=== PATIENT | female | born 1970 | race Caucasian/White ===

== ENCOUNTER 2019-02-28 16:05 | Inpatient (IN) | payer OTHER ==
[2019-02-28 18:39] VITALS: BMI 22.5
--- NOTE | 2019-02-28 19:46 | HP ---
CIWA Score Nausea/Vomitin-No Nausea/No Vomiting Muscle Tremors: None Anxiety: 4-Mod. Anxious/Guarded Agitation: 4-Moderately Restless Paroxysmal Sweats: 3 (Increased facial moisture) Orientation: 0-Oriented Tacttile Disturbances: 1-Very Mild Itch/Numbness Auditory Disturbances: 0-None Visual Disturbances: 0-None Headache: 2-Mild CIWA-Ar Total Score: 14 - Admission Criteria OASAS Guidelines: Admission for Medically Managed Detox: Requires at least one of the followin. CIWA greater than 12 2. Seizures within the past 24 hours 3. Delirium tremens within the past 24 hours 4. Hallucinations within the past 24 hours 5. Acute intervention needed for co occurring medical disorder 6. Acute intervention needed for co occurring psychiatric disorder 7. Severe withdrawal that cannot be handled at a lower level of care (continued vomiting, continued diarrhea, abnormal vital signs) requiring intravenous medication and/or fluids 8. Patient presents the following: CIWA greater than 12 Admission Criteria Met: Admission criteria met Admission ROS S - HPI Chief Complaint: I need to stop using Xanax. Allergies/Adverse Reactions: Allergies Allergy/AdvReac Type Severity Reaction Status Date / Time paroxetine [From Paxil] Allergy Intermediate Rash Verified 02/28/19 18:30 penicillin G AdvReac Swelling Verified 02/28/19 18:30 Sulfa (Sulfonamide AdvReac Swelling Verified 02/28/19 18:30 Antibiotics) History of Present Illness: 48 yo presents w/ Xanax withdrawal seeking detox. Referred by the [facility]". Hx seizure r/t Xanax withdrawal. Denies blackouts/overdoses. JOSUE: 0.0 Utox: + JOSE/OXY/MTD/BZO HCG: Neg Hx heroin use disorder and is on [facility] MMT for over 1 year ). LDM 02/28/19 (today) w/ 50 mg Methadone. Missed several doses and states is currently on a build-up. Was on 115 mg. Has a Narcan kit at home. Benzo use began at age 26 and legally prescribed. Current us is 5-6 mg/day. [facility] has been getting un-prescribed Xanax November 2018. Cocaine - denies use. Oxycodone - states took today for back pain. Nicotine use began at age 13. Currently smokes 6 cig/day (Down from 1.5 PPD) Denies alcohol use. PMHx: Hyperthyroid, chronic back pain, MHHx: Anxiety. PTSD. Depressions. Stopped Zoloft 2 months ago. No recent Psych visit. Denies thoughts of harming self or others. SHx: Homeless. Unemployed. Denies legal issues. Patient Name: Anitra Randhawa Date: 1970 Address: [address] [place] [address] Sex: Female Rx Written Rx Dispensed Drug Quantity Days Supply Prescriber Name 10/17/2018 10/24/2018 alprazolam 2 mg tablet 60 30 Erika Salazar [employer] 09/19/2018 09/25/2018 alprazolam 2 mg tablet 60 30 Erika Salazar [employer] 08/22/2018 08/28/2018 alprazolam 2 mg tablet 60 30 Erika Salazar [employer] 07/22/2018 07/31/2018 alprazolam 2 mg tablet 60 30 Erika Salazar [employer] Patient Name: Anitra Randhawa Date: 1970 Address: [address] [place] [address] Sex: Female Rx Written Rx Dispensed Drug Quantity Days Supply Prescriber Name 06/24/2018 07/02/2018 alprazolam 2 mg tablet 60 30 Erika Salazar [employer] 05/27/2018 06/04/2018 alprazolam 2 mg tablet 60 30 Erika Salazar [employer] Patient Name: Anitra Randhawa Date: 1970 Address: [address] [place] [address] Sex: Female Rx Written Rx Dispensed Drug Quantity Days Supply Prescriber Name 05/28/2018 05/28/2018 alprazolam 2 mg tablet 60 30 Erika Salazar [employer] Search Terms: Anitra Menjivar, 1970 Search Date: 02/28/2019 07:46:04 PM States Searched: [place], [place], [place], [place], [place], [place], [place] The Drug Utilization Report below displays the controlled substance prescriptions, if any, that were dispensed in the indicated state(s). The information displayed on this report is compiled from requests submitted to other states' PMPs, and accurately reflects the information as returned by them. Blank leblanc indicate data not provided by other state. This report was requested by: Marcie Rodriguez | Reference #: [id number] There are no results for the search terms that you entered. Exam Limitations: No Limitations - Ebola screening Have you traveled outside of the country in the last 21 days: No Have you had contact with anyone from an Ebola affected area: No Have you been sick,other than usual withdrawal symptoms: No Do you have a fever: No - Review of Systems Constitutional: Chills, Weight Stable EENT: reports: Blurred Vision, Dental Problems (Missing teeth) Respiratory: reports: No Symptoms reported Cardiac: reports: No Symptoms Reported GI: reports: Constipated (Last BM 3 days ago), Indigestion (Heart burn - take OTC Nexium) : reports: No Symptoms Reported Musculoskeletal: reports: Back Pain (Chronic intermittent achy/sharp back pain. Triggered by sitting and standing too long, as well as certain movements. Pain in back now "7". Improves relaxation, meds (neurontin, motrin, flexeril).), Joint Pain (Hips, (L) knee - achy) Integumentary: reports: No Symptoms Reported Neuro: reports: Headache (Mild headache - temporal area) Endocrine: reports: Increased Thirst Hematology: reports: No Symptoms Reported Psychiatric: reports: Mood/Affect Appropiate, Orientated x3, Anxious, Depressed ( Denies thoughts of harming self or others.) Patient History - PPD History Previous Implant?: Yes Documented Results: Negative w/o proof Implanted On Prior R Admission?: No PPD to be Administered?: Yes - Reproductive History Patient is a Female of Child Bearing Age (11 -55 yrs old): Yes Last Menstrual Period: 01/29/19 Patient : No - Smoking Cessation Smoking history: Current every day smoker Have you smoked in the past 12 months: Yes Aproximately how many cigarettes per day: 6 Hx Chewing Tobacco Use: No Initiated information on smoking cessation: Yes 'Breaking Loose' booklet given: 02/28/19 - Substance & Tx. History Hx Alcohol Use: No Hx Substance Use: Yes Substance Use Type: Heroin, Tranquilizers (Benzo) Hx Substance Use Treatment: Yes (detox, Currrently on MMTP) - Substances abused Alprazolam (Xanax) Substance route: Oral Frequency: Daily Amount used: 5 to 6 mg Age of first use: 26 Date of last use: 02/27/19 Admission Physical Exam [facility] - Vital Signs Vital Signs: Vital Signs - 24 hr 02/28/19 02/28/19 18:28 19:01 Temperature 98.2 F 98.2 F Pulse Rate 69 69 Respiratory 16 16 Rate Blood Pressure 99/62 99/62 - Physical General Appearance: Yes: Nourished, Mild Distress, Sweating (Increased facial moisture), Anxious HEENTM: Yes: EOMI (Jerking movement of eyes upon lateral gaze), Hearing grossly Normal, Normocephalic, Normal Voice, ZEENAT, Pharynx Normal Respiratory: Yes: Lungs Clear (Pulse ox = 99 %), Normal Breath Sounds, No Respiratory Distress Neck: Yes: No masses,lesions,Nodules, Supple Breast: Yes: Breast Exam Deferred Cardiology: Yes: Regular Rhythm, Regular Rate Abdominal: Yes: Non Tender, Flat, Soft, Increased Bowel Sounds Genitourinary: Yes: Within Normal Limits Back: Yes: Within Normal Limits Musculoskeletal: Yes: full range of Motion, Gait Steady Extremities: Yes: Normal Capillary Refill, Tremors 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: 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: 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 NML intact (Jerking movement of eyes upon lateral gaze), Fully Oriented, Alert, Motor Strength 5/5, Normal Response Integumentary: Yes: Normal Color, Cyanotic, Diaphoresis (Increased facial moisture) Lymphatic: Yes: Within Normal Limits - Diagnostic (1) Sedative, hypnotic or anxiolytic dependence with withdrawal, uncomplicated Current Visit: Yes Status: Acute (2) Nicotine dependence, unspecified, uncomplicated Current Visit: Yes Status: Chronic Qualifiers: Nicotine product type: cigarettes Qualified Code(s): F17.210 - Nicotine dependence, cigarettes, uncomplicated (3) Unspecified nystagmus Current Visit: Yes Status: Chronic (4) History of thyroid disorder Current Visit: No Status: Suspected (5) Opioid dependence on agonist therapy Current Visit: Yes Status: Chronic Comment: on Methadone Maintenance (6) Constipation Current Visit: Yes Status: Chronic Qualifiers: Constipation type: unspecified constipation type Qualified Code(s): K59.00 - Constipation, unspecified Cleared for Admission [facility] - Detox or Rehab [facility] Level of Care: Medically Managed Detox Regimen/Protocol: Valium (ATIVAN ) Claeared for Rehab Admission: No Breathalyzer - Breathalyzer Breathalyzer: 0 POC Urine test - Result Urine Test Results: Negative - NO line present Urine Drug Screen - Test Device Lot number: [id number] Expiration date: 11/13/20 - Control Is test valid?: Yes - Results Drug screen NEGATIVE: No Urine drug screen results: JOSE-Cocaine, OXY-Oxycodone, MTD-Methadone, BZO- Benzodiazepines Inpatient Rehab Admission - Rehab Decision to Admit Inpatient rehab admission?: No
[2019-02-28] MEDS ORDERED: NICOTINE POLACRILEX 2 MG GUM BUC PRN (20:39)
[2019-02-28] MEDS ORDERED: MAGNESIUM HYDROX 2400MG/30ML ORAL SUSPENSION 30 ML CUP PO PRN (20:39)
[2019-02-28] MEDS ORDERED: MAG HYDROX/AL HYDROX/SIMETH 30 ML UNIT-DOSE CUP PO PRN (20:39)
[2019-02-28] MEDS ORDERED: MAGNESIUM CITRATE 300 ML BOTTLE PO PRN (20:39)
[2019-02-28] MEDS ORDERED: BISMUTH SUBSALICYLATE 524 MG/30 ML UD PO PRN (20:39)
[2019-02-28] MEDS ORDERED: ACETAMINOPHEN 325 MG TABLET (FP) PO PRN ×2 (20:39)
[2019-02-28] MEDS ORDERED: MENTHOL/PHENOL 1 EACH UD MM PRN (20:39)
[2019-02-28] MEDS ORDERED: PROCHLORPERAZINE MALEATE 5 MG TABLET PO PRN (20:43)
[2019-02-28] MEDS: CYCLOBENZAPRINE HCL 5 MG TABLET PO PRN (22:41)
[2019-02-28] MEDS: THIAMINE HCL 100 MG TABLET (FP) PO SCH (22:41)
[2019-02-28] MEDS: LORazepam 1 MG TABLET PO SCH (22:42)
[2019-02-28] MEDS ORDERED: LORazepam 2 MG TABLET PO SCH (23:00)
[2019-03-01] MEDS: LORazepam 1 MG TABLET PO SCH ×4 (06:15→22:31)
[2019-03-01] MEDS: DOCUSATE SODIUM 100 MG CAPSULE (FP) PO SCH ×3 (06:15→22:31)
[2019-03-01] MEDS ORDERED: METHADONE HCL 40 MG DISPERSABLE TABLET PO SCH (10:00)
[2019-03-01] MEDS ORDERED: METHADONE 40 MG, METHADONE 10 MG PO ONE (10:15)
[2019-03-01] MEDS ORDERED: METHADONE HCL 40 MG DISPERSABLE TABLET ONE (10:17)
[2019-03-01] MEDS ORDERED: METHADONE HCL 10 MG TABLET ONE (10:17)
[2019-03-01] MEDS: NICOTINE 7 MG/24 HOURS TOPICAL PATCH TD SCH (10:18)
[2019-03-01] MEDS: PRENATAL VITAMINS W/ FOLIC ACID TABLET (FP) PO SCH (10:18)
[2019-03-01 10:25] LABS: HEMATOCRIT 32.1 % (32.4-45.2); MCH 30.9 pg (25.7-33.7); MCHC 34.2 g/dl (32.0-36.0); MEAN CELL VOLUME 90.3 fl (80-96); MEAN PLT VOLUME 9.6 fl (7.5-11.1); PLATELET COUNT 225 K/MM3 (134-434); RBC 3.55 M/mm3 (3.60-5.2); WHITE BLOOD COUNT 6.1 K/mm3 (4.0-10.0)
[2019-03-01 10:41] LABS: ALBUMIN 3.4 g/dl (3.4-5.0); BILIRUBIN,TOTAL 0.2 mg/dL (0.2-1); BLOOD UREA NITROGEN 13.3 mg/dL (7-18); CALCIUM 8.6 mg/dL (8.5-10.1); CREATININE 0.9 mg/dL (0.55-1.3); POTASSIUM 3.3 mmol/L (3.5-5.1); TOT PROT 6.3 g/dl (6.4-8.2)
--- NOTE | 2019-03-01 12:37 | PN ---
S CIWA - CIWA Score Nausea/Vomitin-No Nausea/No Vomiting Muscle Tremors: None Anxiety: 3 Agitation: 0-Normal Activity Paroxysmal Sweats: 3 Orientation: 0-Oriented Tacttile Disturbances: 0-None Auditory Disturbances: 0-None Visual Disturbances: 0-None Headache: 2-Mild CIWA-Ar Total Score: 8 BHS Progress Note (SOAP) Subjective: c/o sweats, headache, interrupted sleep, and anxiety. Objective: 03/01/19 12:37 Vital Signs 03/01/19 03/01/19 06:40 09:14 Temperature 98.9 F 98.9 F Pulse Rate 77 78 Respiratory 18 18 Rate Blood Pressure 101/56 L 99/62 Laboratory Last Values WBC 6.1 K/mm3 (4.0-10.0) 03/01/19 07:55 RBC 3.55 M/mm3 (3.60-5.2) L 03/01/19 07:55 Hgb 11.0 GM/dL (10.7-15.3) 03/01/19 07:55 Hct 32.1 % (32.4-45.2) L 03/01/19 07:55 MCV 90.3 fl (80-96) 03/01/19 07:55 MCH 30.9 pg (25.7-33.7) 03/01/19 07:55 MCHC 34.2 g/dl (32.0-36.0) 03/01/19 07:55 RDW 14.0 % (11.6-15.6) 03/01/19 07:55 Plt Count 225 K/MM3 (134-434) 03/01/19 07:55 MPV 9.6 fl (7.5-11.1) 03/01/19 07:55 Sodium 140 mmol/L (136-145) 03/01/19 07:55 Potassium 3.3 mmol/L (3.5-5.1) L 03/01/19 07:55 Chloride 113 mmol/L (98-107) H 03/01/19 07:55 Carbon Dioxide 20 mmol/L (21-32) L 03/01/19 07:55 Anion Gap 7 MMOL/L (8-16) L 03/01/19 07:55 BUN 13.3 mg/dL (7-18) 03/01/19 07:55 Creatinine 0.9 mg/dL (0.55-1.3) 03/01/19 07:55 Est GFR (CKD-EPI)AfAm 87.63 03/01/19 07:55 Est GFR (CKD-EPI)NonAf 75.61 03/01/19 07:55 Random Glucose 141 mg/dL (74-106) H 03/01/19 07:55 Calcium 8.6 mg/dL (8.5-10.1) 03/01/19 07:55 Total Bilirubin 0.2 mg/dL (0.2-1) 03/01/19 07:55 AST 12 U/L (15-37) L 03/01/19 07:55 ALT 16 U/L (13-61) 03/01/19 07:55 Alkaline Phosphatase 68 U/L (45-117) 03/01/19 07:55 Total Protein 6.3 g/dl (6.4-8.2) L 03/01/19 07:55 Albumin 3.4 g/dl (3.4-5.0) 03/01/19 07:55 TSH 0.01 uIU/ml (0.358-3.74) L 03/01/19 07:55 RPR Titer Nonreactive (NONREACTIVE) 03/01/19 07:55 Labs noted with k+ level of 3.3 Assessment: 03/01/19 12:38 AOX3, in no acute respiratory distress. Full ROM, ambulating in the unit. Withdrawal symptoms. hypokalemia Plan: continue detox potassium chloride 40meq po [id number] 4hrs apart. Repeat K+ in AM.
[2019-03-01] MEDS: LORazepam 1 MG TABLET PO PRN (13:54)
[2019-03-01] MEDS: POTASSIUM CHLORIDE TABS 20 MEQ TABLET.ER (FP) PO SCH ×2 (13:54→17:18)
[2019-03-01] MEDS ORDERED: guaiFENesin 200 MG/10 ML 10 ML UNIT-DOSE CUPS PO PRN (14:58)
[2019-03-01] MEDS: MELATONIN 5 MG TABLETS PO PRN (22:31)
[2019-03-01] MEDS: THIAMINE HCL 100 MG TABLET (FP) PO SCH (22:31)
[2019-03-02] MEDS ORDERED: METHADONE HCL 10 MG TABLET ONE (04:26)
[2019-03-02] MEDS ORDERED: METHADONE HCL 40 MG DISPERSABLE TABLET ONE (04:27)
[2019-03-02] MEDS: LORazepam 1 MG TABLET PO SCH ×4 (05:57→22:36)
[2019-03-02] MEDS: DOCUSATE SODIUM 100 MG CAPSULE (FP) PO SCH ×3 (05:59→22:36)
[2019-03-02] MEDS ORDERED: METHADONE 40 MG, METHADONE 10 MG PO SCH (06:00)
[2019-03-02] MEDS: NICOTINE 7 MG/24 HOURS TOPICAL PATCH TD SCH (10:15)
[2019-03-02] MEDS: PRENATAL VITAMINS W/ FOLIC ACID TABLET (FP) PO SCH (10:15)
--- NOTE | 2019-03-02 10:18 | PN ---
S CIWA - CIWA Score Nausea/Vomitin-Mild Nausea/No Vomiting Muscle Tremors: 3 Anxiety: 3 Agitation: 0-Normal Activity Paroxysmal Sweats: 2 Orientation: 1-Uncertain about Date (date of week) Tacttile Disturbances: 0-None Auditory Disturbances: 0-None Visual Disturbances: 0-None Headache: 2-Mild CIWA-Ar Total Score: 12 S Progress Note (SOAP) Subjective: 48 years old female admitted on for benzo withdrawal sx management treated with ativan detox regimen patient tolerated well in methadone program 1 1/2 years taking 115 mg po daily last dose "weeks" ago currently taking 50 mg po daily continue observe toleration Objective: 03/02/19 10:17 Vital Signs Temperature 98.3 F 03/02/19 09:54 Pulse Rate 71 03/02/19 09:54 Respiratory Rate 18 03/02/19 09:54 Blood Pressure 97/61 03/02/19 09:54 O2 Sat by Pulse Oximetry (%) Laboratory Last Values WBC 6.1 K/mm3 (4.0-10.0) 03/01/19 07:55 RBC 3.55 M/mm3 (3.60-5.2) L 03/01/19 07:55 Hgb 11.0 GM/dL (10.7-15.3) 03/01/19 07:55 Hct 32.1 % (32.4-45.2) L 03/01/19 07:55 MCV 90.3 fl (80-96) 03/01/19 07:55 MCH 30.9 pg (25.7-33.7) 03/01/19 07:55 MCHC 34.2 g/dl (32.0-36.0) 03/01/19 07:55 RDW 14.0 % (11.6-15.6) 03/01/19 07:55 Plt Count 225 K/MM3 (134-434) 03/01/19 07:55 MPV 9.6 fl (7.5-11.1) 03/01/19 07:55 Sodium 140 mmol/L (136-145) 03/01/19 07:55 Potassium 3.3 mmol/L (3.5-5.1) L 03/01/19 07:55 Chloride 113 mmol/L (98-107) H 03/01/19 07:55 Carbon Dioxide 20 mmol/L (21-32) L 03/01/19 07:55 Anion Gap 7 MMOL/L (8-16) L 03/01/19 07:55 BUN 13.3 mg/dL (7-18) 03/01/19 07:55 Creatinine 0.9 mg/dL (0.55-1.3) 03/01/19 07:55 Est GFR (CKD-EPI)AfAm 87.63 03/01/19 07:55 Est GFR (CKD-EPI)NonAf 75.61 03/01/19 07:55 Random Glucose 141 mg/dL (74-106) H 03/01/19 07:55 Calcium 8.6 mg/dL (8.5-10.1) 03/01/19 07:55 Total Bilirubin 0.2 mg/dL (0.2-1) 03/01/19 07:55 AST 12 U/L (15-37) L 03/01/19 07:55 ALT 16 U/L (13-61) 03/01/19 07:55 Alkaline Phosphatase 68 U/L (45-117) 03/01/19 07:55 Total Protein 6.3 g/dl (6.4-8.2) L 03/01/19 07:55 Albumin 3.4 g/dl (3.4-5.0) 03/01/19 07:55 TSH 0.01 uIU/ml (0.358-3.74) L 03/01/19 07:55 RPR Titer Nonreactive (NONREACTIVE) 03/01/19 07:55 lab note low K+ treated with K+ supplement repeat K+ pending 03/02/19 10:20 Assessment: 03/02/19 10:20 benzo withdrawal sx Plan: continue ativan detox regimen
[2019-03-02] MEDS ORDERED: POTASSIUM CHLORIDE ORAL LIQUID 20 MEQ/15 ML PO ONE (10:19)
[2019-03-02] MEDS: LORazepam 1 MG TABLET PO PRN ×2 (13:05→20:24)
--- NOTE | 2019-03-02 16:49 | EKG ---
Test Reason : Blood Pressure : / mmHG Vent. Rate : 075 BPM Atrial Rate : 075 BPM P-R Int : 194 ms QRS Dur : 078 ms QT Int : 382 ms P-R-T Axes : 027 071 052 degrees QTc Int : 426 ms NORMAL SINUS RHYTHM NORMAL ECG NO PREVIOUS ECGS AVAILABLE Confirmed by SENTHIL LIMA MD ([id number]) on 03/02/2019 4:49:10 PM Referred By: ESPERANZA Confirmed By:SENTHIL LIMA MD
[2019-03-02] MEDS: IBUPROFEN 400 MG TABLET (FP) PO PRN (18:26)
[2019-03-02] MEDS: CYCLOBENZAPRINE HCL 5 MG TABLET PO PRN (21:20)
[2019-03-02] MEDS: THIAMINE HCL 100 MG TABLET (FP) PO SCH (22:36)
[2019-03-03] MEDS ORDERED: LORazepam 0.5 MG TABLET PO PRN
[2019-03-03] MEDS: LORazepam 0.5 MG TABLET PO SCH ×4 (05:26→22:06)
[2019-03-03] MEDS: DOCUSATE SODIUM 100 MG CAPSULE (FP) PO SCH ×3 (05:26→22:08)
[2019-03-03] MEDS ORDERED: METHADONE HCL 10 MG TABLET ONE (09:16)
[2019-03-03] MEDS ORDERED: METHADONE HCL 40 MG DISPERSABLE TABLET ONE (09:17)
[2019-03-03] MEDS: NICOTINE 7 MG/24 HOURS TOPICAL PATCH TD SCH (10:17)
[2019-03-03] MEDS: METHADONE 40 MG, METHADONE 10 MG PO SCH (10:17)
[2019-03-03] MEDS: PRENATAL VITAMINS W/ FOLIC ACID TABLET (FP) PO SCH (10:17)
--- NOTE | 2019-03-03 11:08 | PN ---
S CIWA - CIWA Score Nausea/Vomitin-No Nausea/No Vomiting Muscle Tremors: 2 Anxiety: 2 Agitation: 2 Paroxysmal Sweats: 1-Minimal Palms Moist Orientation: 0-Oriented Tacttile Disturbances: 0-None Auditory Disturbances: 0-None Visual Disturbances: 0-None Headache: 0-None Present CIWA-Ar Total Score: 7 BHS Progress Note (SOAP) Subjective: 48 years old female admitted on 02/28/19 for benzo withdrawal sx management treated with ativan detox regimen feeling better less tremor sleep better at night less anxiety Objective: 03/03/19 11:08 Vital Signs Temperature 98.4 F 03/03/19 09:15 Pulse Rate 75 03/03/19 09:15 Respiratory Rate 16 03/03/19 09:15 Blood Pressure 104/68 03/03/19 09:15 O2 Sat by Pulse Oximetry (%) 03/03/19 11:08 Laboratory Last Values WBC 6.1 K/mm3 (4.0-10.0) 03/01/19 07:55 RBC 3.55 M/mm3 (3.60-5.2) L 03/01/19 07:55 Hgb 11.0 GM/dL (10.7-15.3) 03/01/19 07:55 Hct 32.1 % (32.4-45.2) L 03/01/19 07:55 MCV 90.3 fl (80-96) 03/01/19 07:55 MCH 30.9 pg (25.7-33.7) 03/01/19 07:55 MCHC 34.2 g/dl (32.0-36.0) 03/01/19 07:55 RDW 14.0 % (11.6-15.6) 03/01/19 07:55 Plt Count 225 K/MM3 (134-434) 03/01/19 07:55 MPV 9.6 fl (7.5-11.1) 03/01/19 07:55 Sodium 140 mmol/L (136-145) 03/01/19 07:55 Potassium 4.3 mmol/L (3.5-5.1) 03/02/19 07:40 Chloride 113 mmol/L (98-107) H 03/01/19 07:55 Carbon Dioxide 20 mmol/L (21-32) L 03/01/19 07:55 Anion Gap 7 MMOL/L (8-16) L 03/01/19 07:55 BUN 13.3 mg/dL (7-18) 03/01/19 07:55 Creatinine 0.9 mg/dL (0.55-1.3) 03/01/19 07:55 Est GFR (CKD-EPI)AfAm 87.63 03/01/19 07:55 Est GFR (CKD-EPI)NonAf 75.61 03/01/19 07:55 Random Glucose 141 mg/dL (74-106) H 03/01/19 07:55 Calcium 8.6 mg/dL (8.5-10.1) 03/01/19 07:55 Total Bilirubin 0.2 mg/dL (0.2-1) 03/01/19 07:55 AST 12 U/L (15-37) L 03/01/19 07:55 ALT 16 U/L (13-61) 03/01/19 07:55 Alkaline Phosphatase 68 U/L (45-117) 03/01/19 07:55 Total Protein 6.3 g/dl (6.4-8.2) L 03/01/19 07:55 Albumin 3.4 g/dl (3.4-5.0) 03/01/19 07:55 TSH 0.01 uIU/ml (0.358-3.74) L 03/01/19 07:55 RPR Titer Nonreactive (NONREACTIVE) 03/01/19 07:55 lab noted Assessment: 03/03/19 11:09 benzo withdrawal sx Plan: continue ativan detox regimen
[2019-03-03] MEDS: CYCLOBENZAPRINE HCL 5 MG TABLET PO PRN ×2 (14:36→22:09)
[2019-03-03] MEDS ORDERED: hydrOXYzine PAMOATE 50 MG CAPSULE (FP) PO ONE (15:00)
[2019-03-03 16:46] LABS: URINE APPEARANCE CLEAR; URINE BILIRUBIN NEGATIVE (NEGATIVE); URINE COLOR YELLOW; URINE GLUCOSE (UA) NEGATIVE (NEGATIVE); URINE KETONE NEGATIVE (NEGATIVE); URINE LEUK ESTERASE NEGATIVE (NEGATIVE); URINE NITRITE NEGATIVE (NEGATIVE); URINE PROTEIN NEGATIVE (NEGATIVE); URINE UROBILINOGEN 0.2 mg/dL (0.2-1.0)
[2019-03-03] MEDS: IBUPROFEN 400 MG TABLET (FP) PO PRN (20:09)
[2019-03-03] MEDS: THIAMINE HCL 100 MG TABLET (FP) PO SCH (22:06)
[2019-03-03] MEDS: MELATONIN 5 MG TABLETS PO PRN (22:09)
[2019-03-04] MEDS ORDERED: LORazepam 0.5 MG TABLET PO ONE (05:00)
[2019-03-04] MEDS: DOCUSATE SODIUM 100 MG CAPSULE (FP) PO SCH ×2 (05:53→13:19)
[2019-03-04] MEDS ORDERED: METHADONE HCL 10 MG TABLET ONE (09:28)
[2019-03-04] MEDS ORDERED: METHADONE HCL 40 MG DISPERSABLE TABLET ONE (09:30)
[2019-03-04] MEDS: METHADONE 40 MG, METHADONE 10 MG PO SCH (10:38)
[2019-03-04] MEDS: IBUPROFEN 400 MG TABLET (FP) PO PRN ×2 (10:41→17:41)
[2019-03-04] MEDS: PRENATAL VITAMINS W/ FOLIC ACID TABLET (FP) PO SCH (10:44)
[2019-03-04] MEDS: NICOTINE 7 MG/24 HOURS TOPICAL PATCH TD SCH (10:44)
--- NOTE | 2019-03-04 12:10 | DS ---
[facility] Detox Discharge Summary Admission Date: 02/28/19 Discharge Date: 03/04/19 - History Present History: Sedative Dependence Additional Comments: 48 years old female admitted on 02/28/19 for benzo withdrawal sx management treated with ativan detox regimen patient is alert oriented x cardiac S1S2 regular rate rhythm respiratory clear lung bilaterally on auscultation extremities full range of motion - Physical Exam Results Vital Signs: Vital Signs Temperature 98.1 F 03/04/19 09:17 Pulse Rate 66 03/04/19 09:17 Respiratory Rate 18 03/04/19 09:17 Blood Pressure 100/60 03/04/19 09:17 O2 Sat by Pulse Oximetry (%) Pertinent Admission Physical Exam Findings: benzo withdrawal sx Laboratory Last Values WBC 6.1 K/mm3 (4.0-10.0) 03/01/19 07:55 RBC 3.55 M/mm3 (3.60-5.2) L 03/01/19 07:55 Hgb 11.0 GM/dL (10.7-15.3) 03/01/19 07:55 Hct 32.1 % (32.4-45.2) L 03/01/19 07:55 MCV 90.3 fl (80-96) 03/01/19 07:55 MCH 30.9 pg (25.7-33.7) 03/01/19 07:55 MCHC 34.2 g/dl (32.0-36.0) 03/01/19 07:55 RDW 14.0 % (11.6-15.6) 03/01/19 07:55 Plt Count 225 K/MM3 (134-434) 03/01/19 07:55 MPV 9.6 fl (7.5-11.1) 03/01/19 07:55 Sodium 140 mmol/L (136-145) 03/01/19 07:55 Potassium 4.3 mmol/L (3.5-5.1) 03/02/19 07:40 Chloride 113 mmol/L (98-107) H 03/01/19 07:55 Carbon Dioxide 20 mmol/L (21-32) L 03/01/19 07:55 Anion Gap 7 MMOL/L (8-16) L 03/01/19 07:55 BUN 13.3 mg/dL (7-18) 03/01/19 07:55 Creatinine 0.9 mg/dL (0.55-1.3) 03/01/19 07:55 Est GFR (CKD-EPI)AfAm 87.63 03/01/19 07:55 Est GFR (CKD-EPI)NonAf 75.61 03/01/19 07:55 Random Glucose 141 mg/dL (74-106) H 03/01/19 07:55 Calcium 8.6 mg/dL (8.5-10.1) 03/01/19 07:55 Total Bilirubin 0.2 mg/dL (0.2-1) 03/01/19 07:55 AST 12 U/L (15-37) L 03/01/19 07:55 ALT 16 U/L (13-61) 03/01/19 07:55 Alkaline Phosphatase 68 U/L (45-117) 03/01/19 07:55 Total Protein 6.3 g/dl (6.4-8.2) L 03/01/19 07:55 Albumin 3.4 g/dl (3.4-5.0) 03/01/19 07:55 TSH 0.01 uIU/ml (0.358-3.74) L 03/01/19 07:55 Urine Color Yellow 03/03/19 10:55 Urine Appearance Clear 03/03/19 10:55 Urine pH 7.0 (5.0-8.0) 03/03/19 10:55 Ur Specific [place] 1.012 (1.010-1.035) 03/03/19 10:55 Urine Protein Negative (NEGATIVE) 03/03/19 10:55 Urine Glucose (UA) Negative (NEGATIVE) 03/03/19 10:55 Urine Ketones Negative (NEGATIVE) 03/03/19 10:55 Urine Blood Negative (NEGATIVE) 03/03/19 10:55 Urine Nitrite Negative (NEGATIVE) 03/03/19 10:55 Urine Bilirubin Negative (NEGATIVE) 03/03/19 10:55 Urine Urobilinogen 0.2 mg/dL (0.2-1.0) 03/03/19 10:55 Ur Leukocyte Esterase Negative (NEGATIVE) 03/03/19 10:55 POC Urine HCG, Qual Negative 02/28/19 19:02 RPR Titer Nonreactive (NONREACTIVE) 03/01/19 07:55 lab noted - Treatment Hospital Course: Detox Protocol Followed, Detoxed Safely, Responded well, Discharged Condition Good, Rehab Referral Accepted Patient has Accepted a Rehab Referral to: [facility] - Medication Discharge Medications: Ambulatory Orders Sertraline HCl [Zoloft] 100 mg PO DAILY 02/28/19 - Diagnosis (1) Sedative, hypnotic or anxiolytic dependence with withdrawal, uncomplicated Current Visit: Yes Status: Acute (2) Nicotine dependence, unspecified, uncomplicated Current Visit: Yes Status: Acute Qualifiers: Nicotine product type: cigarettes Qualified Code(s): F17.210 - Nicotine dependence, cigarettes, uncomplicated - AMA Did Patient Leave Against Medical Advice: No CIWA Score - CIWA Score Nausea/Vomitin-No Nausea/No Vomiting Muscle Tremors: 1-None Visible, but [place] Anxiety: 1-Mildly Anxious Agitation: 1-Slight > Activity Paroxysmal Sweats: 1-Minimal Palms Moist Orientation: 0-Oriented Tacttile Disturbances: 0-None Auditory Disturbances: 0-None Visual Disturbances: 0-None Headache: 0-None Present CIWA-Ar Total Score: 4
[2019-03-04 13:16] VITALS: BP 110/64; PULSE 76; TEMP 98.2
== END 2019-03-04 18:02 | disposition other institution (70) | DRG 773 ==
LOC: YASAS 16:05 → Y3N 21:07
PROVIDERS: ADMIT Allergy & Immunology; ATTEND Allergy & Immunology
PROC: HZ2ZZZZ Detoxification Services for Substance Abuse Treatment (ICD-10-PCS; principal; 2019-02-28)
DX: F13.230 Sedative, hypnotic or anxiolytic dependence with withdrawal, uncomplicated (principal); F11.20 Opioid dependence, uncomplicated; F17.210 Nicotine dependence, cigarettes, uncomplicated; E87.6 Hypokalemia; H55.00 Unspecified nystagmus; E05.90 Thyrotoxicosis, unspecified without thyrotoxic crisis or storm; K59.00 Constipation, unspecified; Z88.0 Allergy status to penicillin; Z88.2 Allergy status to sulfonamides; Z88.8 Allergy status to other drugs, medicaments and biological substances; Z86.69 Personal history of other diseases of the nervous system and sense organs
CPT/HCPCS: 36415; 80053; 81003; 81025; 84132; 84443; 85027; 86593; 93005; 93010

== ENCOUNTER 2019-03-04 18:06 | Inpatient (IN) | payer OTHER ==
--- NOTE | 2019-03-04 12:17 | HP ---
[facility] Rehab Assess/Revision - Admission History Admitted to Rehab from: [facility] Date of Admission to Rehab: 03/04/19 - Findings Detox History & Physical reviewed: Yes Concur with findings: Yes Comments/Additional Findings: tranferred from detox to rehab admission as per protocol Inpatient Rehab Admission - Rehab Decision to Admit Inpatient rehab admission?: Yes - Initial Determination Are CD services needed?: Yes Free of communicable disease: Yes Not in need of hospitalization: Yes - Rehab Admission Criteria Previous failed treatment: Yes Poor recovery environment: Yes Comorbidities: Yes Lacks judgement: Yes Patient is meeting Inpatient Rehab admission criteria:: Yes
[~2019-03-04 18:06] MED LIST: ACETAMINOPHEN 325 MG TABLET (FP) PO PRN; LOPERAMIDE HCL 2 MG CAPSULE PO PRN; MAG HYDROX/AL HYDROX/SIMETH 30 ML UNIT-DOSE CUP PO PRN; MAGNESIUM CITRATE 300 ML BOTTLE PO PRN; MAGNESIUM HYDROX 2400MG/30ML ORAL SUSPENSION 30 ML CUP PO PRN; MENTHOL/PHENOL 1 EACH UD MM PRN; NICOTINE POLACRILEX 2 MG GUM BUC PRN; P-EPHED 60MG/TRIPROLIDI 2.5MG TABLET PO PRN; guaiFENesin 200 MG/10 ML 10 ML UNIT-DOSE CUPS PO PRN
[2019-03-04] MEDS: IBUPROFEN 400 MG TABLET (FP) PO PRN (18:58)
[2019-03-04] MEDS ORDERED: PT OWN MED DRAWER 7, Y5N ONE (21:07)
[2019-03-04] MEDS: DOCUSATE SODIUM 100 MG CAPSULE (FP) PO SCH (21:07)
[2019-03-04] MEDS ORDERED: THIAMINE HCL 100 MG TABLET (FP) PO SCH (22:00)
[2019-03-04] MEDS ORDERED: MELATONIN 5 MG TABLETS PO PRN (22:00)
[2019-03-05] MEDS ORDERED: METHADONE HCL 10 MG TABLET PO SCH (06:00)
[2019-03-05 06:55] VITALS: BP 111/68; PULSE 67; TEMP 98.2
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
[2019-03-05] MEDS: DOCUSATE SODIUM 100 MG CAPSULE (FP) PO SCH ×2 (07:35→14:21)
[2019-03-05] MEDS ORDERED: METHADONE 40 MG, METHADONE 10 MG PO SCH (08:00)
[2019-03-05] MEDS ORDERED: METHADONE HCL 10 MG TABLET ONE (09:08)
[2019-03-05] MEDS ORDERED: METHADONE HCL 40 MG DISPERSABLE TABLET ONE (09:09)
[2019-03-05] MEDS ORDERED: PRENATAL VITAMINS W/ FOLIC ACID TABLET (FP) PO SCH (10:00)
[2019-03-05] MEDS ORDERED: NICOTINE 7 MG/24 HOURS TOPICAL PATCH TD SCH (10:00)
[2019-03-05] MEDS ORDERED: hydrOXYzine PAMOATE 50 MG CAPSULE (FP) PO PRN (10:07)
[2019-03-05] MEDS: IBUPROFEN 400 MG TABLET (FP) PO PRN (11:50)
[2019-03-05] MEDS ORDERED: CYCLOBENZAPRINE HCL 5 MG TABLET PO SCH (14:00)
--- NOTE | 2019-03-05 14:30 | DS ---
[facility] Rehab Discharge Summary - [facility] Rehab Discharge Summary Admission Date: 03/04/19 Discharge Date: 03/05/19 - History Present History: Opioid dependence, Sedative dependence (Pt used Xanax.) Pertinent Past History: History of Present Illness: 48 yo presents w/ Xanax withdrawal. Referred by the [facility]". Hx seizure r/t Xanax withdrawal. Denies blackouts/overdoses. Hx heroin use disorder and is on [facility] for over 1 year ). LDM 02/28/19 w/ 50 mg Methadone. Missed several doses and [facility] is currently on a build-up. Was on 115 mg. Has a Narcan kit at home. Benzo use began at age 26 and legally prescribed. Current use is 5-6 mg/day. [facility] has been getting un-prescribed Xanax November 2018. Cocaine - denies use. Oxycodone - states took today for back pain. Nicotine use began at age 13. Currently smokes 6 cig/day (Down from 1.5 PPD) Denies alcohol use. PMHx: Hyperthyroid, chronic back pain, MHHx: Anxiety. PTSD. Depressions. Stopped Zoloft 2 months ago. No recent Psych visit. Denies thoughts of harming self or others. SHx: Homeless. Unemployed. Denies legal issues. 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 Medically stable for discharge.) Hospital Course: Patient had 1:1 meeting with counselor. Participated in groups while she was in rehab. Followed treatment plan and was adherent to her medication regimen. - Medication Discharge Medications: Ambulatory Orders Sertraline HCl [Zoloft] 100 mg PO DAILY 02/28/19 - Medication-Assisted Treatment (MAT) Medication-Assisted Treatment (MAT): Yes MAT Follow-up Referral: [facility] - Discharge Instructions Diet, activity, other medical instructions: Diet: as tolerated Activity: as tolerated Other medical instructions: Please follow up with aftercare referral. 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
== END 2019-03-05 14:50 | disposition home or self-care (01) | DRG 772 ==
LOC: YASAS 18:06 → Y3E 18:07
PROVIDERS: ADMIT Neuromusculoskeletal Medicine & OMM; ATTEND Neuromusculoskeletal Medicine & OMM
PROC: HZ42ZZZ Group Counseling for Substance Abuse Treatment, Cognitive-Behavioral (ICD-10-PCS; principal; 2019-03-04)
DX: F13.20 Sedative, hypnotic or anxiolytic dependence, uncomplicated (principal); F11.20 Opioid dependence, uncomplicated; F17.210 Nicotine dependence, cigarettes, uncomplicated; F43.10 Post-traumatic stress disorder, unspecified; E05.90 Thyrotoxicosis, unspecified without thyrotoxic crisis or storm; H55.00 Unspecified nystagmus; M54.9 Dorsalgia, unspecified; G89.29 Other chronic pain; Z88.0 Allergy status to penicillin; Z88.2 Allergy status to sulfonamides; Z88.8 Allergy status to other drugs, medicaments and biological substances; Z86.69 Personal history of other diseases of the nervous system and sense organs